=== PATIENT | female | born 1985 | race Caucasian/White ===

== ENCOUNTER → 2017-11-02 | Outpatient (CLI) | payer OTHER ==
[~2017-11-02] MED LIST: ADD/10 PO; AGM875 PO; SYN50 PO
== END | disposition home or self-care (01) ==
LOC: C.PAPS 08:47
PROVIDERS: ATTEND Obstetrics & Gynecology
DX: Z01.419 Encounter for gynecological examination (general) (routine) without abnormal findings (principal)

== ENCOUNTER → 2017-11-02 | Outpatient (CLI) | payer BC | END | disposition home or self-care (01) | LOC: C.LABSPEC 17:47 | PROVIDERS: ATTEND Obstetrics & Gynecology | DX: Z11.3 Encounter for screening for infections with a predominantly sexual mode of transmission (principal); Z11.8 Encounter for screening for other infectious and parasitic diseases ==

== ENCOUNTER 2018-05-09 21:30 | Emergency (ER) | payer OTHER ==
[~2018-05-09] VITALS: Ht 154.9 cm; Wt 66.7 kg
[2018-05-09 21:33] VITALS: Ht 154.9 cm; Wt 66.7 kg
[2018-05-09 22:18] VITALS: TEMP 36.9
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
[2018-05-10 01:07] VITALS: BP 144/94; PULSE 76; O2SAT 97
== END 2018-05-10 01:07 | disposition home or self-care (01) ==
LOC: C.EDB 21:31 → C.EDC 05-10 01:07
DX: T74.11XA Adult physical abuse, confirmed, initial encounter (principal); S50.811A Abrasion of right forearm, initial encounter; S50.812A Abrasion of left forearm, initial encounter; S40.811A Abrasion of right upper arm, initial encounter; S40.812A Abrasion of left upper arm, initial encounter; Y04.8XXA Assault by other bodily force, initial encounter